=== PATIENT | female | born 1970 | race Caucasian/White ===

== ENCOUNTER 2022-08-27 11:56 | Emergency (ER) | payer OTHER, SELFPAY ==
[2022-08-27 12:11] VITALS: BP 122/64; PULSE 98; RESP 22; TEMP 36.5; O2SAT 100
== END 2022-08-27 14:10 | disposition left against medical advice (07) ==
LOC: EXPBETH 12:00
PROVIDERS: Emergency Provider Registered Nurse
DX: Z53.21 Procedure and treatment not carried out due to patient leaving prior to being seen by health care provider (principal)
CPT/HCPCS: 99199